=== PATIENT | female | born 1970 | race American Indian/Alaskan Native ===

== ENCOUNTER 2017-04-07 16:15 | Emergency (ER) | payer MEDICAID ==
[2017-04-07 16:49] VITALS: BP 159/102
[2017-04-07 16:56] LABS: Basophils % (Auto) 0.4 % (0.0-1.8); Eosinophils % (Auto) 0.9 % (0.0-4.3); Hematocrit 39.4 % (30.3-42.9); Hemoglobin 12.4 gm/dl (10.1-14.3); Mean Corpuscular HGB Conc 31 % (30-34); Mean Corpuscular Hemoglobin 29 pg (28-32); Mean Corpuscular Volume 91 fl (79-97); Platelet Count 336 K/mm3 (140-440); Red Blood Count 4.31 M/mm3 (3.65-5.03); Red Cell Distribution Width 13.6 % (13.2-15.2); White Blood Count 11.9 K/mm3 (4.5-11.0)
[2017-04-07 16:59] LABS: INR 0.97 (0.87-1.13)
[2017-04-07 17:03] LABS: BUN/Creatinine Ratio 17; Blood Urea Nitrogen 10 mg/dL (7-17); Calcium 9.1 mg/dL (8.4-10.2); Carbon Dioxide 24 mmol/L (22-30); Glucose 280 mg/dL (65-100)
[2017-04-07 17:04] LABS: Anion Gap 19 mmol/L; Chloride 98.6 mmol/L (98-107); Potassium 3.9 mmol/L (3.6-5.0); Sodium 138 mmol/L (137-145)
--- NOTE | 2017-04-07 17:17 | Cat Scan Report ---
FINAL REPORT PROCEDURE: CT HEAD/BRAIN WO CON TECHNIQUE: Computerized tomography of the head was performed without contrast material. DLP 1495.49 mGy-cm. HISTORY: Neurologic deficits < 6hrs or sx present upon awakening. COMPARISON: CT scan of the brain dated 12/08/2015. FINDINGS: Skull and scalp: Normal. Paranasal sinuses: Normal. Ventricles and subarachnoid spaces: Normal. Cerebrum: No evidence of hemorrhage, acute infarction or mass. Bilateral basal ganglia calcifications. Cerebellum and brainstem: No evidence of hemorrhage, acute infarction or mass. Vasculature: Normal. Comments: None. IMPRESSION: No CT evidence of acute intracranial pathology. Consider MRI for further characterization if there is continued clinical concern for superimposed acute process and if patient has no contraindication to MRI. Critical test stroke protocol report finalized within 15 minutes of time from [place].
--- NOTE | 2017-04-07 18:00 | Emergency Department Report ---
ED Neuro Deficit HPI - General Chief Complaint: Headache Stated Complaint: LEFT SIDE WEAKNESS Time Seen by Provider: 04/07/17 17:50 Source: patient Mode of arrival: Ambulatory Limitations: No Limitations - History of Present Illness Initial Comments: Patient is not complaining of any sided weakness. This is biliary correct. She states that she thought she might have had a TIA on Monday she lasted for a minute or 2. However she did not come to the hospital for that today. She states that she had some pressure in the left periorbital area. She became very anxious about that and presented to the hospital. She is here with her who states that they have been but they are now moving back and together. They both admit that she has been under a lot of stress lately. She states the symptoms of pressure around her left eye have resolved. She does not complain of any weakness. She is not complaining of any substantial headache. She is not acutely anxious. She denies any difficulty with her speech today. Her TIA symptoms 2 days ago consisted of transient difficulty with speech but it was also associated with stress. The patient had a workup at this facility 2016. The discharge summary from the hospitalist states that she declined an MRI. However I do full An MRI in 2016 that was read by the radiologist as negative. He had no findings of acute or chronic stroke on that MRI at all. She is an insulin- dependent diabetic and has a history of hyperlipidemia and hypertension. She was given a prescription for Aggrenox at that time. She states that she is never taken this medicine. I presume that she was noncompliant or doesn't recall. -: minutes(s) Location: left face History of same: Yes Place: home Severity: moderate Quality: other (pressure sensation) Improves With: none Worsens With: none On Anticoagulants: No ( takes aspirin) Associated Symptoms: denies other symptoms (now asymptomatic) Treatments Prior to Arrival: none - Related Data Home Medications: Home Medications Medication Instructions Recorded Confirmed Last Taken glipiZIDE [Glucotrol] 5 mg PO QDAY 12/09/15 12/09/15 3 Months Ago ~09/08/15 Previous Rx's Medication Instructions Recorded Last Taken Type Aspirin/Dipyridamole [Aggrenox] 1 cap PO BID #60 cap 12/09/15 Unknown Rx Chlorthalidone [Thalitone] 25 mg PO DAILY #30 tablet 12/09/15 Unknown Rx Insulin Glulisine [Apidra] 0 units SUB-Q ACHS units 12/09/15 Unknown Rx Insulin Glulisine [Apidra] 4 units SQ ACHS #30 units 12/09/15 Unknown Rx Losartan [Cozaar] 100 mg PO QDAY #30 tablet 12/09/15 Unknown Rx Simvastatin [Zocor TAB] 20 mg PO QHS #30 tablet 12/09/15 Unknown Rx Butalb/Acetamin/Caff 50-325-40 1 each PO Q4H PRN #14 tablet 04/07/17 Unknown Rx [Fioricet] Allergies/Adverse Reactions: Allergies Allergy/AdvReac Type Severity Reaction Status Date / Time No Known Allergies Allergy Verified 12/09/14 11:45 ED Review of Systems ROS: Stated complaint: LEFT SIDE WEAKNESS Other details as noted in HPI Constitutional: denies: chills, fever Eyes: denies: eye pain, eye discharge, vision change ENT: denies: ear pain, throat pain Respiratory: denies: cough, shortness of breath, wheezing Cardiovascular: denies: chest pain, palpitations Endocrine: no symptoms reported Gastrointestinal: denies: abdominal pain, nausea, diarrhea Genitourinary: denies: urgency, dysuria, discharge Musculoskeletal: denies: back pain, joint swelling, arthralgia Skin: denies: rash, lesions Neurological: as per HPI, headache. 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) Hx Heart Attack/AMI: No Hx Congestive Heart Failure: No Hx Diabetes: Yes Hx Deep Vein Thrombosis: No Hx Liver Disease: No Hx Renal Disease: No Hx Arthritis: No Hx Seizures: No Hx Asthma: No Hx COPD: No Hx Dementia: No Hx HIV: No Additional medical history: TIA - 11 - Surgical History Hx Coronary Stent: No Hx Pacemaker: No Hx Internal Defibrillator: No Hx Cholecystectomy: Yes - Social History Smoking Status: Never Smoker Substance Use Type: None - Medications Home Medications: Home Medications Medication Instructions Recorded Confirmed Last Taken Type Aspirin/Dipyridamole [Aggrenox] 1 cap PO BID #60 cap 12/09/15 Unknown Rx Chlorthalidone [Thalitone] 25 mg PO DAILY #30 tablet 12/09/15 Unknown Rx Insulin Glulisine [Apidra] 0 units SUB-Q ACHS units 12/09/15 Unknown Rx Insulin Glulisine [Apidra] 4 units SQ ACHS #30 units 12/09/15 Unknown Rx Losartan [Cozaar] 100 mg PO QDAY #30 tablet 12/09/15 Unknown Rx Simvastatin [Zocor TAB] 20 mg PO QHS #30 tablet 12/09/15 Unknown Rx glipiZIDE [Glucotrol] 5 mg PO QDAY 12/09/15 12/09/15 3 Months Ago History ~09/08/15 Butalb/Acetamin/Caff 50-325-40 1 each PO Q4H PRN #14 tablet 04/07/17 Unknown Rx [Fioricet] ED Neuro Physical Exam - General Limitations: No Limitations General appearance: alert, in no apparent distress Suspected Stroke: No - Head Head exam: Present: atraumatic, normocephalic - Eye Eye exam: Present: normal appearance, PERRL, EOMI. Absent: scleral icterus - ENT ENT exam: Present: mucous membranes moist - Neck Neck exam: Present: normal inspection - Respiratory Respiratory exam: Present: normal lung sounds bilaterally. Absent: respiratory distress - Cardiovascular Cardiovascular Exam: Present: regular rate, normal rhythm. Absent: systolic murmur, diastolic murmur, rubs, gallop - GI/Abdominal GI/Abdominal exam: Present: soft, normal bowel sounds. Absent: distended, tenderness, guarding, rebound, rigid - Extremities Exam Extremities exam: Present: normal inspection - Back Exam Back exam: Present: normal inspection - Neurological Exam Neurological exam: Present: alert, oriented X3, CN II-XII intact. Absent: motor sensory deficit - NIHSS Assessment Interval: Baseline 1a. Level of Consciousness: alert 1b. LOC Questions: answers correctly 1c. LOC Commands: performs tasks correctly 2. Best Gaze: normal 3. Visual: no visual loss 4. Facial Palsy: normal symmetrical movement 5b. Motor Arm Right: no drift 5a. Motor Arm Left: no drift 6a. Motor Leg Left: no drift 6b. Motor Leg Right: no drift 7. Limb Ataxia: absent 8. Sensory: normal 9. Best Language: no aphasia 10. Dysarthria: normal 11. Extinction/Inattention: no abnormality Total Score: 0 Stroke Severity: No Stroke Symptoms - Psychiatric Psychiatric exam: Present: normal affect, normal mood - Skin Skin exam: Present: warm, dry, intact, normal color. Absent: rash ED Course Vital Signs 04/07/17 16:48 Temperature 98.0 F Pulse Rate 78 Blood Pressure 159/102 - Reevaluation(s) Reevaluation #1: The patient is appropriate for outpatient management. She does have a primary care provider. She will be given some aspirin prior to discharge. She is informed to her sugar at home and insulin as appropriate. She is given appropriate return criteria. She'll continue her aspirin. She previously had problems with Plavix and aspirin. I don't think this episode for the episode on Monday is likely consistent with TIA. I am not going to re-prescribe her Aggrenox at this time. 04/07/17 18:08 - Lab Data Result diagrams: 04/07/17 16:35 04/07/17 16:35 Lab Results 04/07/17 04/07/17 04/07/17 Range/Units 16:35 16:35 16:35 WBC 11.9 H (4.5-11.0) K/mm3 RBC 4.31 (3.65-5.03) M/mm3 Hgb 12.4 (10.1-14.3) gm/dl Hct 39.4 (30.3-42.9) % MCV 91 (79-97) fl MCH 29 (28-32) pg MCHC 31 (30-34) % RDW 13.6 (13.2-15.2) % Plt Count 336 (140-440) K/mm3 Lymph % (Auto) 28.6 (13.4-35.0) % [place] % (Auto) 5.4 (0.0-7.3) % Eos % (Auto) 0.9 (0.0-4.3) % Baso % (Auto) 0.4 (0.0-1.8) % Lymph # 3.4 (1.2-5.4) K/mm3 [place] # 0.6 (0.0-0.8) K/mm3 Eos # 0.1 (0.0-0.4) K/mm3 Baso # 0.0 (0.0-0.1) K/mm3 Seg Neutrophils % 64.7 (40.0-70.0) % Seg Neutrophils # 7.7 (1.8-7.7) K/mm3 PT 13.4 (12.2-14.9) Sec. INR 0.97 (0.87-1.13) APTT 25.0 (24.2-36.6) Sec. Thrombin Time (15.1-19.6) Sec. Sodium 138 (137-145) mmol/L Potassium 3.9 (3.6-5.0) mmol/L Chloride 98.6 (98-107) mmol/L Carbon Dioxide 24 (22-30) mmol/L Anion Gap 19 mmol/L BUN 10 (7-17) mg/dL Creatinine 0.6 L (0.7-1.2) mg/dL Estimated GFR > 60 ml/min BUN/Creatinine Ratio 17 % Glucose 280 H (65-100) mg/dL Calcium 9.1 (8.4-10.2) mg/dL Troponin T < 0.010 (0.00-0.029) ng/mL 04/07/17 Range/Units 16:35 WBC (4.5-11.0) K/mm3 RBC (3.65-5.03) M/mm3 Hgb (10.1-14.3) gm/dl Hct (30.3-42.9) % MCV (79-97) fl MCH (28-32) pg MCHC (30-34) % RDW (13.2-15.2) % Plt Count (140-440) K/mm3 Lymph % (Auto) (13.4-35.0) % [place] % (Auto) (0.0-7.3) % Eos % (Auto) (0.0-4.3) % Baso % (Auto) (0.0-1.8) % Lymph # (1.2-5.4) K/mm3 [place] # (0.0-0.8) K/mm3 Eos # (0.0-0.4) K/mm3 Baso # (0.0-0.1) K/mm3 Seg Neutrophils % (40.0-70.0) % Seg Neutrophils # (1.8-7.7) K/mm3 PT (12.2-14.9) Sec. INR (0.87-1.13) APTT (24.2-36.6) Sec. Thrombin Time 16.7 (15.1-19.6) Sec. Sodium (137-145) mmol/L Potassium (3.6-5.0) mmol/L Chloride (98-107) mmol/L Carbon Dioxide (22-30) mmol/L Anion Gap mmol/L BUN (7-17) mg/dL Creatinine (0.7-1.2) mg/dL Estimated GFR ml/min BUN/Creatinine Ratio % Glucose (65-100) mg/dL Calcium (8.4-10.2) mg/dL Troponin T (0.00-0.029) ng/mL Laboratory Results - last 24 hr 04/07/17 04/07/17 04/07/17 16:35 16:35 16:35 WBC 11.9 H RBC 4.31 Hgb 12.4 Hct 39.4 MCV 91 MCH 29 MCHC 31 RDW 13.6 Plt Count 336 Lymph % (Auto) 28.6 [place] % (Auto) 5.4 Eos % (Auto) 0.9 Baso % (Auto) 0.4 Lymph # 3.4 [place] # 0.6 Eos # 0.1 Baso # 0.0 Seg Neutrophils % 64.7 Seg Neutrophils # 7.7 PT 13.4 INR 0.97 APTT 25.0 Thrombin Time Sodium 138 Potassium 3.9 Chloride 98.6 Carbon Dioxide 24 Anion Gap 19 BUN 10 Creatinine 0.6 L Estimated GFR > 60 BUN/Creatinine Ratio 17 Glucose 280 H Calcium 9.1 Troponin T < 0.010 04/07/17 16:35 WBC RBC Hgb Hct MCV MCH MCHC RDW Plt Count Lymph % (Auto) [place] % (Auto) Eos % (Auto) Baso % (Auto) Lymph # [place] # Eos # Baso # Seg Neutrophils % Seg Neutrophils # PT INR APTT Thrombin Time 16.7 Sodium Potassium Chloride Carbon Dioxide Anion Gap BUN Creatinine Estimated GFR BUN/Creatinine Ratio Glucose Calcium Troponin T - Radiology Data Radiology results: report reviewed (CT head shows no acute process) Critical care attestation.: If time is entered above; I have spent that time in minutes in the direct care of this critically ill patient, excluding procedure time. ED Disposition Clinical Impression: Situational anxiety Hyperglycemia due to type 2 diabetes mellitus Qualifiers: Diabetes mellitus long term acute care registered nurse insulin use: with snf use Qualified Code(s): E11.65 - Type 2 diabetes mellitus with hyperglycemia; Z79.4 - supervisor intermediates (current ) use of insulin; Z79.4 - prison (current) use of insulin; Z79.4 - supervisor intermediates (current) use of insulin; Z79.4 - prison (current) use of insulin Cephalalgia Qualifiers: Headache type: unspecified Headache chronicity pattern: episodic headache Intractability: not intractable Qualified Code(s): R51 - Headache Hypertension Qualifiers: Hypertension type: essential hypertension Qualified Code(s): I10 - Essential ( primary) hypertension Disposition: - TO HOME OR SELFCARE Is pt being admited?: No Does the pt Need Aspirin: No Condition: Stable Instructions: Diabetes Mellitus Type 2 in Adults (ED), Hypertension (ED), Anxiety (ED), Acute Headache (ED) Additional Instructions: Check your sugar at home. Insulin as appropriate. Follow your blood pressure. Return any significant headache as required or if you have any sought of further symptoms that you are concerned I be a TIA. Follow-up with your primary care physician. Continue your aspirin. Prescriptions: Butalb/Acetamin/Caff 50-325-40 [Fioricet] 1 each PO Q4H PRN #14 tablet PRN Reason: Headache Referrals: KOURTNEY HERNANDEZ [Other] - 2-3 Days Time of Disposition: 18:11
== END 2017-04-07 19:26 | disposition home or self-care (01) ==
LOC: ED 16:15
DX: E11.65 Type 2 diabetes mellitus with hyperglycemia (principal); F41.8 Other specified anxiety disorders; I10 Essential (primary) hypertension; R51 Headache; Z79.4 Long term (current) use of insulin; Z86.73 Personal history of transient ischemic attack (TIA), and cerebral infarction without residual deficits; Z90.49 Acquired absence of other specified parts of digestive tract
CPT/HCPCS: 36415; 70450; 80048; 82962; 84484; 85025; 85610; 85670; 85730; 93005; 93010

== ENCOUNTER 2017-07-01 17:17 | Emergency (ER) | payer SELFPAY ==
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
[2017-07-01] MEDS ORDERED: MOTRIN PO ONE (19:39)
[2017-07-01 20:03] VITALS: BP 138/99
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
== END 2017-07-01 20:35 | disposition home or self-care (01) ==
LOC: ED 17:17
DX: M54.2 Cervicalgia (principal); M54.5 Low back pain; I10 Essential (primary) hypertension
CPT/HCPCS: 72040; 99283

== ENCOUNTER 2019-04-22 08:56 | Emergency (ER) | payer SELFPAY ==
[2019-04-22] MEDS ORDERED: ASPIRIN 325 MG TAB PO ONE (09:09)
[2019-04-22 09:55] LABS: Basophils % (Auto) 0.4 % (0.0-1.8); Eosinophils # (Auto) 0.1 K/mm3 (0.0-0.4); Eosinophils % (Auto) 0.8 % (0.0-4.3); Hematocrit 39.4 % (30.3-42.9); Hemoglobin 13.3 gm/dl (10.1-14.3); Lymphocytes % (Auto) 38.3 % (13.4-35.0); Mean Corpuscular HGB Conc 34 % (30-34); Mean Corpuscular Volume 94 fl (79-97); Monocytes # (Auto) 0.6 K/mm3 (0.0-0.8); Monocytes % (Auto) 7.7 % (0.0-7.3); Platelet Count 336 K/mm3 (140-440); Red Cell Distribution Width 12.7 % (13.2-15.2)
[2019-04-22 10:14] LABS: BUN/Creatinine Ratio 12; Blood Urea Nitrogen 7 mg/dL (7-17); Hemolysis Index 8
--- NOTE | 2019-04-22 10:18 | XRay Report ---
CHEST 2 VIEWS INDICATION: Chest Pain. COMPARISON: None FINDINGS: Support devices: None. Heart: Within normal limits. Lungs/pleura: No acute air space or interstitial disease. No pneumothorax. Additional findings: None. IMPRESSION: Normal chest x-ray Signer Name: George Cheema Jr, MD Signed: 04/22/2019 10:14 AM Workstation Name: [id number]
--- NOTE | 2019-04-22 11:33 | Emergency Department Report ---
<BEST RODRIGUEZ - Last Filed: 04/22/19 14:06> ED Chest Pain HPI - General Chief Complaint: Chest Pain Stated Complaint: R SIDE CHEST PAIN/SOB Time Seen by Provider: 04/22/19 10:53 Source: patient Mode of arrival: Ambulatory Limitations: No Limitations - History of Present Illness Initial Comments: 9-year-old female with a past medical history of hypertension, hyperlipidemia, diabetes presents to the ER today complaining of right-sided chest pain which has been constant for about 4 weeks. Patient reports the pain to be sharp in nature, nonradiating, and seems to be worse with deep breaths. She reports associated shortness of breath, and intermittent feet swelling. She denies any nausea, vomiting, diaphoresis, cough, fever or chills, abdominal pain, or back pain. Patient states that she was seen at [facility] ER about 3 weeks ago for similar symptoms. At the time she had labs done, as well as a chest x-ray and an EKG. She states that she was diagnosed with gastritis, and was discharged home with reflux medicines. Patient states she returns today because this pain seems to be persistent and is not getting better. She denies any history of coronary artery disease/ND. She denies hx of DVT/PE and has no current risk factors for DVT/PE. Patient does admit that she has been noncompliant with any of her medications over the past 6 months. MD Complaint: chest pain -: week(s) (about 4 weeks ago) Pain Location: right chest Pain Radiation: none Severity: moderate Severity scale (0 -10): 9 Quality: sharp Consistency: constant Improves With: nothing Worsens With: inspiration re: dyspnea. denies: nausea, vomting, diaphoresis, sense of impending doom Other Symptoms: leg swelling (feet swelling). denies: cough, fever, syncope, rash, acid taste in mouth, palpitations, burping Treatments Prior to Arrival: none - Related Data Previous Rx's Medication Instructions Recorded Last Taken Type Aspirin/Dipyridamole [Aggrenox] 1 cap PO BID #60 cap 12/09/15 Unknown Rx Chlorthalidone [Thalitone] 25 mg PO DAILY #30 tablet 12/09/15 Unknown Rx Insulin Glulisine [Apidra] 0 units SUB-Q ACHS units 12/09/15 Unknown Rx Insulin Glulisine [Apidra] 4 units SQ ACHS #30 units 12/09/15 Unknown Rx Simvastatin (Nf) [Zocor TAB] 20 mg PO QHS #30 tablet 12/09/15 Unknown Rx Butalb/Acetamin/Caff 50-325-40 1 each PO Q4H PRN #14 tablet 04/07/17 Unknown Rx [Fioricet] Cyclobenzaprine [Flexeril] 10 mg PO TID PRN #15 tablet 07/01/17 Unknown Rx traMADoL [Ultram] 50 mg PO Q6HR PRN #20 tablet 07/01/17 Unknown Rx Famotidine [Pepcid] 40 mg PO QHS #30 tablet 04/22/19 Unknown Rx Losartan [Cozaar] 100 mg PO QDAY #30 tablet 04/22/19 Unknown Rx glipiZIDE [Glucotrol] 5 mg PO QDAY #30 04/22/19 Unknown Rx traMADoL [Ultram] 50 mg PO Q6HR PRN #15 tablet 04/22/19 Unknown Rx Allergies Allergy/AdvReac Type Severity Reaction Status Date / Time No Known Allergies Allergy Verified 07/01/17 17:25 Heart Score - HEART Score History: Slightly suspicious EKG: Normal Age: 45-65 Risk factors: > 3 risk factors or hx of atherosclerotic disease Troponin: < normal limit HEART Score: 3 ED Review of Systems Comment: All other systems reviewed and negative Constitutional: denies: chills, diaphoresis, fever, weakness Respiratory: shortness of breath. denies: cough, orthopnea, stridor, wheezing Cardiovascular: chest pain, edema. 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) Hx Heart Attack/AMI: No Hx Congestive Heart Failure: No Hx Diabetes: Yes Hx Deep Vein Thrombosis: No Hx Liver Disease: No Hx Renal Disease: No Hx Arthritis: No Hx Seizures: No Hx Asthma: No Hx COPD: No Hx Dementia: No Hx HIV: No Additional medical history: TIA - 11 - Surgical History Past Surgical History?: Yes Hx Coronary Stent: No Hx Pacemaker: No Hx Internal Defibrillator: No Hx Cholecystectomy: Yes - Social History Smoking Status: Never Smoker Substance Use Type: None - Medications Home Medications: Home Medications Medication Instructions Recorded Confirmed Last Taken Type Aspirin/Dipyridamole [Aggrenox] 1 cap PO BID #60 cap 12/09/15 Unknown Rx Chlorthalidone [Thalitone] 25 mg PO DAILY #30 tablet 12/09/15 Unknown Rx Insulin Glulisine [Apidra] 0 units SUB-Q ACHS units 12/09/15 Unknown Rx Insulin Glulisine [Apidra] 4 units SQ ACHS #30 units 12/09/15 Unknown Rx Simvastatin (Nf) [Zocor TAB] 20 mg PO QHS #30 tablet 12/09/15 Unknown Rx Butalb/Acetamin/Caff 50-325-40 1 each PO Q4H PRN #14 tablet 04/07/17 Unknown Rx [Fioricet] Cyclobenzaprine [Flexeril] 10 mg PO TID PRN #15 tablet 07/01/17 Unknown Rx traMADoL [Ultram] 50 mg PO Q6HR PRN #20 tablet 07/01/17 Unknown Rx Famotidine [Pepcid] 40 mg PO QHS #30 tablet 04/22/19 Unknown Rx Losartan [Cozaar] 100 mg PO QDAY #30 tablet 04/22/19 Unknown Rx glipiZIDE [Glucotrol] 5 mg PO QDAY #30 04/22/19 Unknown Rx traMADoL [Ultram] 50 mg PO Q6HR PRN #15 tablet 04/22/19 Unknown Rx ED Physical Exam - General Limitations: No Limitations General appearance: alert, in no apparent distress - Head Head exam: Present: atraumatic, normocephalic - Eye Eye exam: Present: normal appearance, PERRL, EOMI Pupils: Present: normal accommodation - Respiratory Respiratory exam: Present: normal lung sounds bilaterally, chest wall tenderness (right lateral chest wall, right upper chest wall and mildly right lower chest underneath breast). Absent: respiratory distress, wheezes, rales, rhonchi - Cardiovascular Cardiovascular Exam: Present: regular rate, normal rhythm, normal heart sounds - GI/Abdominal GI/Abdominal exam: Present: soft, tenderness (mild RUQ ). Absent: guarding, rebound, rigid, diminished bowel sounds - Extremities Exam Extremities exam: Present: normal inspection, full ROM. Absent: pedal edema, calf tenderness - Neurological Exam Neurological exam: Present: alert, oriented X3, CN II-XII intact, normal gait. Absent: motor sensory deficit - Psychiatric Psychiatric exam: Present: normal affect, normal mood CHACHO score - Chacho Score Age > 65: (0) No Aspirin use within the Past 7 Days: (1) Yes 3 or more CAD Risk Factors: (1) Yes 2 or more Angina events in past 24 hrs: (0) No Known CAD with more than 50% Stenosis: (0) No Elevated Cardiac Markers: (0) No ST Deviation Greater than 0.5mm: (0) No CHACHO Score: 2 ED Medical Decision Making - Lab Data Result diagrams: 04/22/19 09:26 04/22/19 09:26 - EKG Data EKG shows normal: sinus rhythm Rate: normal - EKG Data Interpretation: no acute changes - Radiology Data Radiology results: report reviewed - Medical Decision Making Patient presents with right sided cp x 4 weeks. She was seen at [facility] and had negative work up and was dx with gastritis. She presents today pain is persistent. She is s/p Romy. Work up today also unremarkable including 2 negative trops and neg ddimer. cxr negative for anything acute. Her EKG show nothing acute. Pt does appear to have ttp right chest wall which does appear to reproduce her pain. Discussed the lab results with patient, informed her that her pain could most likely be musculoskeletal in nature, she could also have gastritis as well. At this time I do no suspect ACS as cause of her pain. Pt BP has improved with clonidine. Her BS was 290 but no evidence of DKA and pt has been non compliant with her medications x 6mths. Informed patient that I can refill her lorsartan and glipizide but I will give her referral to PCP for any additional treatments of her chronic conditions. Patient is not toxic or ill appearing, she is not in any acute respiratory distress nor any pain distress. Admission not indicated at this time. She is stable at this time for d/c. Recommend return to ED if worse. ED Disposition Clinical Impression: Right-sided chest pain, Non compliance w medication regimen, Uncontrolled hypertension, Uncontrolled diabetes mellitus Disposition: -01 TO HOME OR SELFCARE Is pt being admited?: No Does the pt Need Aspirin: No Condition: Stable Instructions: Chest Pain (ED), Costochondritis (ED), Diabetes Mellitus Type 2 in Adults (ED), Hypertension (ED) Prescriptions: Famotidine [Pepcid] 40 mg PO QHS #30 tablet Losartan [Cozaar] 100 mg PO QDAY #30 tablet glipiZIDE [Glucotrol] 5 mg PO QDAY #30 traMADoL [Ultram] 50 mg PO Q6HR PRN #15 tablet PRN Reason: Pain Referrals: YASMINE GARZON MD [Staff Physician] - 3-5 Days Forms: Work/School Release Form(ED) Time of Disposition: 13:55 <KEITH HADLEY - Last Filed: 04/22/19 18:33> ED Chest Pain HPI - History of Present Illness Initial Comments: 49 year old female ED Review of Systems ROS: Stated complaint: R SIDE CHEST PAIN/SOB Other details as noted in HPI ED Course Vital Signs 04/22/19 04/22/19 04/22/19 09:11 11:11 11:22 Temperature 98.3 F 98.2 F Pulse Rate 94 H 85 Respiratory 18 18 Rate Blood Pressure 189/114 Blood Pressure 189/114 [Right] O2 Sat by Pulse 98 99 Oximetry 04/22/19 04/22/19 12:01 13:18 Temperature Pulse Rate 66 77 Respiratory 15 Rate Blood Pressure 195/125 Blood Pressure 143/94 [Right] O2 Sat by Pulse Oximetry ED Medical Decision Making - Lab Data Result diagrams: 04/22/19 09:26 04/22/19 09:26 Critical care attestation.: If time is entered above; I have spent that time in minutes in the direct care of this critically ill patient, excluding procedure time. ED Disposition Is pt being admited?: No
[2019-04-22] MEDS ORDERED: MORPHINE 2 MG/1 ML INJ IV ONE (11:34)
[2019-04-22] MEDS ORDERED: ASPIRIN 325 MG TAB ONE (11:55)
[2019-04-22] MEDS ORDERED: cloNIDine 0.2 MG TAB ONE (11:59)
[2019-04-22] MEDS ORDERED: cloNIDine 0.2 MG TAB PO ONE (12:00)
[2019-04-22 12:50] LABS: Bilirubin,Urine NEG (Negative); Blood,Urine NEG (Negative); Color,Urine Yellow (Yellow); Mucus,Urine FEW /HPF; Protein,Urine <15 mg/dL mg/dL (Negative); Urobilinogen,Urine < 2.0 mg/dL (<2.0)
[2019-04-22 13:19] VITALS: BP 143/94
== END 2019-04-22 14:40 | disposition home or self-care (01) ==
LOC: ED 08:56
DX: E11.65 Type 2 diabetes mellitus with hyperglycemia (principal); R07.89 Other chest pain; I10 Essential (primary) hypertension; Z90.49 Acquired absence of other specified parts of digestive tract; Z79.899 Other long term (current) drug therapy; Z86.73 Personal history of transient ischemic attack (TIA), and cerebral infarction without residual deficits
CPT/HCPCS: 36415; 71046; 80048; 81001; 83690; 84484; 85025; 85379; 93005; 93010; 96374; 99284; J2270